=== PATIENT | female | born 1975 | race Caucasian/White ===

== ENCOUNTER 2020-06-13 22:24 | Emergency (ER) | payer MEDICAID, OTHER ==
[~2020-06-13] VITALS: Ht 152.4 cm; Wt 67.1 kg
[~2020-06-13 22:24] MED LIST: ASCO100020 PO; BIRTH CONTROL PILL PO; [UNRECOGNIZED DRUG - OTHER] PO
[2020-06-13 22:26] VITALS: BP 111/62
--- NOTE | 2020-06-13 22:32 | NUR ---
PT TAKEN TO BED 3
--- NOTE | 2020-06-13 22:40 | NUR ---
TRENT RAPID TEST COMPLETE AND TAKEN TO LAB. PT TOLERATED WELL
--- NOTE | 2020-06-13 22:49 | NUR ---
BIBS, C/O SORE THROAT X4D. STATES THAT SHE IS UNABLE TO SWALLOW FOODS AND HAS DIFFICULTY WITH LIQUIDS. STATES THAT SHE HAD AN EPISODE OF CHOKING YESTERDAY. STATES THAT SHE WENT TO ER YESTERDAY AND RECEIVED AZITHROMYCIN AND APAP BUT HAS NO IMPROVEMENT. + DRY COUGH. DENIES SPUTUM PRODUCTION. THROAT PALE TO TONSIL AREA. LUNGS CLEAR THROUGHOUT. SPO2 99% ON RA. NO SOB NOTED. PMH- TONSILLECTOMY, HYSTERECTOMY, RHINOPLASTY. ALLERGIES-ENVIRONMENTAL.
[2020-06-13] MEDS ORDERED: ALUMINUM HYD/MAG/SIMETHICONE 30 ML, DICYCLOMINE HCL LIQUID 20 MG, LIDOCAINE VISCOUS 2% ... PO ONE ×3 (22:55)
[2020-06-13] MEDS ORDERED: LIDOCAINE VISCOUS 2% 20 ML UDC ONE (22:57)
[2020-06-13] MEDS ORDERED: DICYCLOMINE HCL LIQUID 10 MG/5 ML UDC ONE (22:57)
[2020-06-13] MEDS ORDERED: ALUMINUM HYD/MAG/SIMETHICONE 30 ML UDC ONE (22:57)
--- NOTE | 2020-06-13 23:40 | NUR ---
STREP SWAB COMPLETED AND TAKEN TO LAB. PT TOLERATED WELL.
[2020-06-14 00:20] VITALS: BP 111/62
--- NOTE | 2020-06-14 00:20 | NUR ---
Patient discharged with v/s stable. Written and verbal after care instructions given and explained. Patient alert, oriented and verbalized understanding of instructions. Ambulatory with steady gait. All questions addressed prior to discharge. ID band removed. Patient advised to follow up with PMD. Rx of CHLORESEPTIC given. Patient educated on indication of medication including possible reaction and side effects. Opportunity to ask questions provided and answered.
== END 2020-06-14 00:20 | disposition home or self-care (01) ==
LOC: MED 22:24
DX: J02.9 Acute pharyngitis, unspecified (principal)
CPT/HCPCS: 70360; 87081; 99284

== ENCOUNTER 2020-06-14 16:18 | Emergency (ER) | payer OTHER ==
[~2020-06-14] VITALS: Ht 152.4 cm; Wt 67.1 kg
[2020-06-14 16:23] VITALS: BP 128/84
[2020-06-14] MEDS ORDERED: NACL 0.9% 500 ML IV ONE (16:25)
--- NOTE | 2020-06-14 16:45 | NUR ---
Patient ambulated to bed 6. RN evaluating patient at bedside.
--- NOTE | 2020-06-14 16:45 | NUR ---
Dr. Sears is evaluating the patient at bedside.
--- NOTE | 2020-06-14 16:50 | NUR ---
PATIENT PRESENTS TO ED AFTER RECEIVING CALL REQUESTING PT RETURN TO ER FOR RECHECK . PT CONTINUES WITH C/O DIFFICULTY SWALLOWING . DENIES N/V/D; SKIN IS PINK/WARM/DRY; AAOX4 WITH EVEN AND STEADY GAIT; LUNGS CLEAR BL; HR EVEN AND REGULAR; PT DENIES ANY FEVER, CP, SOB, OR COUGH AT THIS TIME; PATIENT STATES PAIN OF 0/10 AT THIS TIME; VSS; PATIENT POSITIONED FOR COMFORT; HOB ELEVATED; BEDRAILS UP X2; BED DOWN. ER MD MADE AWARE OF PT STATUS.
[2020-06-14 17:24] LABS: BASOPHILS # (AUTO) 0.1 K/uL (0.00-0.22); BASOPHILS % (AUTO) 1.4 % (0.0-2.0); EOSINOPHILS # (AUTO) 0.2 K/uL (0-0.4); EOSINOPHILS % (AUTO) 2.7 % (0.0-4.0); HEMATOCRIT 38.8 % (36-48); HEMOGLOBIN 13.3 g/dL (12.0-16.0); LYMPHOCYTES # (AUTO) 2.2 K/uL (2.5-16.5); LYMPHOCYTES % (AUTO) 35.5 % (20.5-51.1); MEAN CORPUSCULAR HEMOGLOBIN 31 pg (27-31); MEAN CORPUSCULAR HGB CONC 34 g/dL (33-37); MEAN CORPUSCULAR VOLUME 91.5 fL (80-94); MONOCYTES # (AUTO) 0.3 K/uL (0.8-1.0); MONOCYTES % (AUTO) 4.8 % (1.7-9.3); NEUTROPHILS # (AUTO) 3.4 K/uL (1.8-7.7); NEUTROPHILS % (AUTO) 55.6 % (42.2-75.2); PLATELET COUNT (AUTO) 259 K/uL (140-450); RED BLOOD CELL COUNT(AUTO) 4.24 MIL/uL (4.20-5.40); RED CELL DISTRIBUTION WIDTH 12.4 % (11.6-13.7); WHITE BLOOD COUNT (AUTO) 6.2 K/uL (4.8-10.8)
[2020-06-14 18:59] LABS: ANION GAP 14.9 (8-16); CARBON DIOXIDE 22.9 mmol/L (21-32); CREATININE 0.7 mg/dL (0.6-1.3); POTASSIUM 3.8 mmol/L (3.5-5.1)
--- NOTE | 2020-06-14 19:10 | NUR ---
RECEIVED REPORT FROM PIOTR MUHAMMAD FOR CONTINUATION OF CARE.
--- NOTE | 2020-06-14 19:41 | NUR ---
PT RETURNED FROM CT VIA W/C
--- NOTE | 2020-06-14 19:42 | NUR ---
PT CONNECTED TO [employer]INEER AT THIS TIME. PT RESTING IN BED, LOCKED AND IN LOWEST POSITION, HOB ELEVATED, SIDE RAIL X1. VSS. NO ACUTE DISTRESS NOTED AT THIS TIME.
--- NOTE | 2020-06-14 20:45 | NUR ---
ERMD AT BEDSIDE FOR RE EVALUATION.
--- NOTE | 2020-06-14 20:50 | NUR ---
IV removed, catheter intact and site benign. Applied folded 4x4 gauze and tape to stop bleeding.
[2020-06-14 20:58] VITALS: BP 132/60
--- NOTE | 2020-06-14 20:58 | NUR ---
Patient discharged with v/s stable. Written and verbal after care instructions given and explained. Patient alert, oriented and verbalized understanding of instructions. Ambulatory with steady gait. All questions addressed prior to discharge. ID band removed. Patient advised to follow up with PMD. Rx of LIDOCAINE HYDROCHLORIDE 2% given. Patient educated on indication of medication including possible reaction and side effects. Opportunity to ask questions provided and answered.
== END 2020-06-14 20:58 | disposition home or self-care (01) ==
LOC: MED 16:18
DX: J02.9 Acute pharyngitis, unspecified (principal); R13.10 Dysphagia, unspecified; Z79.899 Other long term (current) drug therapy; Z90.710 Acquired absence of both cervix and uterus; Z90.49 Acquired absence of other specified parts of digestive tract
CPT/HCPCS: 36415; 70491; 80048; 85025; 96360; 99285; Q9967; J7030